=== PATIENT | male | born 1950 | race Caucasian/White ===

== ENCOUNTER 2021-07-06 15:12 | Inpatient (IN) | payer BC, MEDICARE ==
[~2021-07-06] VITALS: Ht 190.5 cm; Wt 65.9 kg
[2021-07-06 15:50] LABS: BASOPHILS % (AUTO) 0.1 % (0-1); EOSINOPHILS # (AUTO) 0.1 X10'3 (0-0.9); EOSINOPHILS % (AUTO) 0.3 % (0-6); HEMATOCRIT 27.8 % (42.0-52.0); HEMOGLOBIN 9.5 g/dl (14.0-17.9); LYMPHOCYTES % (AUTO) 13.3 % (21-51); MEAN CORPUSCULAR HEMOGLOBIN 30.4 PG (27.0-31.0); MEAN CORPUSCULAR HGB CONC 34.2 g/dL (33.0-36.5); MEAN CORPUSCULAR VOLUME 88.7 FL (78-98); MEAN PLATELET VOLUME 7.5 FL (7.4-10.4); MONOCYTES # (AUTO) 1.2 X10'3 (0-0.9); MONOCYTES % (AUTO) 5.2 % (2-12); NEUTROPHILS # (AUTO) 18.4 X10'3 (1.8-7.7); NEUTROPHILS % (AUTO) 81.1 % (42-75); PLATELET COUNT 257 X10'3 (140-440); RED BLOOD COUNT 3.13 X10'6 (4.70-6.10); RED CELL DISTRIBUTION WIDTH 14.9 % (11.5-14.5); WHITE BLOOD COUNT 22.7 X10'3 (4.5-11.0)
[2021-07-06] MEDS ORDERED: pantoprazole 40MG/NS 100ML BAG 100 ML IV SCH (16:00)
[2021-07-06 16:04] LABS: APTT 26 SECONDS (22-32)
[2021-07-06 16:05] LABS: ALANINE AMINOTRANSFERASE 40 U/L (12-78); ALBUMIN 1.3 G/DL (3.4-5.0); ALBUMIN/GLOBULIN RATIO 0.5 (1.1-1.5); ALKALINE PHOSPHATASE 69 IU/L (46-116); ANION GAP 6 (8-16); ASPARTATE AMINO TRANSFERASE 8 U/L (10-37); BILIRUBIN,TOTAL 0.2 MG/DL (0.1-1.0); BLOOD UREA NITROGEN 36 MG/DL (7-18); BUN/CREATININE RATIO 50.7 (5.4-32.0); CALCIUM 7.1 MG/DL (8.5-10.1); CHLORIDE 108 MMOL/L (99-107); CREATININE 0.71 MG/DL (0.60-1.10); GLUCOSE 148 MG/DL (70-104); SODIUM 142 MMOL/L (135-145); TOTAL CARBON DIOXIDE 27.8 MMOL/L (24-32); TOTAL PROTEIN 3.7 G/DL (6.4-8.2); eGFR > 90 ML/MIN
[2021-07-06] MEDS ORDERED: normal saline 1000ml 1,000 ML IV ONE ×2 (16:15→18:10)
[2021-07-06 17:11] LABS: LARGE PLATELETS FEW; NUCLEATED RED BLOOD CELLS 1 /100WBC (0-0); PLATELET ESTIMATE NORMAL; POLYCHROMASIA FEW; TOTAL CELLS COUNTED 100
[2021-07-06] MEDS ORDERED: magnesium 2GM in 50ml NS 50 ML IV PRN (18:35)
[2021-07-06] MEDS ORDERED: magnesium 4gm in 100ml NS 100 ML IV PRN (18:35)
[2021-07-06] MEDS ORDERED: potassium CL 10mEq/100ml bag 100 ML IV PRN (18:35)
[2021-07-06] MEDS ORDERED: mag hydrox/Alum hydrox/simeth 30ml oral suspension PO PRN (18:35)
[2021-07-06] MEDS ORDERED: potassium Cl 20 mEq SR tablet PO PRN (18:35)
[2021-07-06] MEDS ORDERED: HYDROcodone/acetaminophen 5mg/325mg tablet PO PRN (18:35)
[2021-07-06] MEDS ORDERED: morphine 2 MG/ML inj. syringe IV PRN (18:35)
[2021-07-06] MEDS ORDERED: ondansetron/PF 4mg/2ml inj IV PRN (18:35)
[2021-07-06] MEDS ORDERED: dextrose 50%-water 50ml dispensing syringe IV PRN ×2 (18:50)
[2021-07-06] MEDS ORDERED: dextrose ORAL solution 15 GM/59 ML bottle PO PRN ×2 (18:50)
[2021-07-06] MEDS ORDERED: glucagon, human recombinant 1mg kit SUBCUT PRN (18:50)
[2021-07-06] MEDS ORDERED: MESSAGE TO PHARMACY PO ONE (18:50)
[2021-07-06] MEDS ORDERED: PREG150C46 PO (19:29)
[2021-07-06] MEDS ORDERED: OXYC-658 PO (19:29)
[2021-07-06] MEDS ORDERED: PRED20TA (19:29)
[2021-07-06] MEDS ORDERED: OMEP-50 PO (19:29)
[2021-07-06] MEDS ORDERED: APIX5TAB3 PO (19:29)
[2021-07-06] MEDS ORDERED: CELE100C98 PO (19:29)
[2021-07-06] MEDS: docusate sod 100mg capsule PO SCH (19:32)
[2021-07-06] MEDS: K and/or MAG REPLACEMENT MC SCH (20:00)
[2021-07-06] MEDS: insulin glargine (Lantus) pen - multi-dose SQ SCH (20:44)
[2021-07-06 21:10] LABS: HEMOGLOBIN 7.8 g/dl (14.0-17.9); MEAN CORPUSCULAR HEMOGLOBIN 30.7 PG (27.0-31.0); MEAN CORPUSCULAR HGB CONC 34.1 g/dL (33.0-36.5); MEAN CORPUSCULAR VOLUME 90.1 FL (78-98); MEAN PLATELET VOLUME 7.4 FL (7.4-10.4); PLATELET COUNT 240 X10'3 (140-440); RED BLOOD COUNT 2.55 X10'6 (4.70-6.10); RED CELL DISTRIBUTION WIDTH 14.5 % (11.5-14.5)
[2021-07-06] MEDS: pantoprazole 40MG/D5 100ML BAG 100 ML IV SCH (21:16)
[2021-07-06] MEDS: normal saline 1000ml 1,000 ML IV SCH (21:20)
--- NOTE | 2021-07-06 22:32 | NUR ---
NS reassessment undocumented prior to this RN assuming care.
[2021-07-06] MEDS: morphine 2 MG/ML inj. syringe IV PRN (23:07)
[2021-07-07] VITALS (16 sets, daily range): BP systolic 74–114; BP diastolic 48–75
--- NOTE | 2021-07-07 03:45 | NUR ---
ATTEMPTED TO DRAW BLOOD X2 AND WAS UNSUCCESSFUL. PT HAD LARGE BM W/ LARGE AMT OF BLOOD NOTED. WILL REQUEST PHLEBOTOMY ASSISTANCE. WILL CONTINUE TO OBSERVE.
[2021-07-07] MEDS: pantoprazole 40MG/D5 100ML BAG 100 ML IV SCH ×2 (04:01→14:30)
[2021-07-07] MEDS: morphine 2 MG/ML inj. syringe IV PRN ×3 (04:02→23:36)
--- NOTE | 2021-07-07 05:55 | NUR ---
PHLEBOTOMY WAS UNABLE TO DRAW ALSO. INFORMED. NO NEW ORDERS. WILL CONTINUE TO OBSERVE.
--- NOTE | 2021-07-07 06:27 | NUR ---
Patient in room PCU 3011. I have received report from Lb REYNOLDS and had the opportunity to ask questions and assume patient care. Pt. safe and stable at time of change of shift.
[2021-07-07] MEDS: docusate sod 100mg capsule PO SCH ×2 (08:00→21:22)
[2021-07-07] MEDS: K and/or MAG REPLACEMENT MC SCH ×2 (08:00→20:00)
[2021-07-07 08:12] LABS: HEMATOCRIT 23.2 % (42.0-52.0); HEMOGLOBIN 7.9 g/dl (14.0-17.9); MEAN CORPUSCULAR HGB CONC 33.9 g/dL (33.0-36.5); MEAN CORPUSCULAR VOLUME 91.5 FL (78-98); MEAN PLATELET VOLUME 7.6 FL (7.4-10.4); PLATELET COUNT 283 X10'3 (140-440); RED BLOOD COUNT 2.54 X10'6 (4.70-6.10); WHITE BLOOD COUNT 18.2 X10'3 (4.5-11.0)
[2021-07-07] MEDS: normal saline 1000ml 1,000 ML IV SCH ×2 (08:12→15:14)
--- NOTE | 2021-07-07 08:19 | NUR ---
INSULIN REFUSAL Pt. NPO not given insulin, will continue to monitor throughout shift.
[2021-07-07 08:24] LABS: ALANINE AMINOTRANSFERASE 35 U/L (12-78); ALBUMIN 1.4 G/DL (3.4-5.0); ALBUMIN/GLOBULIN RATIO 0.6 (1.1-1.5); ALKALINE PHOSPHATASE 64 IU/L (46-116); ANION GAP 9 (8-16); ASPARTATE AMINO TRANSFERASE 10 U/L (10-37); BILIRUBIN,TOTAL 0.2 MG/DL (0.1-1.0); BLOOD UREA NITROGEN 24 MG/DL (7-18); CALCIUM 7.2 MG/DL (8.5-10.1); CHLORIDE 111 MMOL/L (99-107); GLUCOSE 212 MG/DL (70-104); MAGNESIUM 1.6 MG/DL (1.5-2.4); POTASSIUM 3.9 MMOL/L (3.5-5.1); SODIUM 144 MMOL/L (135-145); TOTAL CARBON DIOXIDE 23.9 MMOL/L (24-32); TOTAL PROTEIN 3.8 G/DL (6.4-8.2); eGFR > 90 ML/MIN
[2021-07-07] MEDS ORDERED: fentaNYL/PF 50MCG/1 ML 2ML syringe ONE (09:16)
[2021-07-07] MEDS ORDERED: MIDAZolam 1 MG/ML 5ML VIAL ONE (09:16)
[2021-07-07] MEDS ORDERED: LIDOcaine Viscous 15ml cup ONE (09:17)
[2021-07-07] MEDS ORDERED: oxyCODONE IR 5mg (immed. release) tablet PO PRN (11:10)
[2021-07-07] MEDS: HYDROcodone/acetaminophen 10/325mg tab PO PRN (11:43)
[2021-07-07] MEDS: pregabalin 75mg capsule PO SCH ×2 (13:13→21:21)
--- NOTE | 2021-07-07 15:17 | NUR ---
Lumbar CT Pt. refused CT stating he's too tired right now; Pt. receiving blood currently; Will continue to monitor. Kathi Click PCU
[2021-07-07] MEDS: insulin Lispro (HumaLOG) vial - multi-dose SQ SCH (15:40)
--- NOTE | 2021-07-07 16:13 | NUR ---
Malnutrition consult: Per malnutrition risk screen pt unsure of wt loss though reports decreased appetite. Per triage note/EMR pt previously in ICU at another facility one week ago with DVT and bilat pulmonary embolism and was discharged 24 hrs CATECHIST. Pt admit for GIB, s/p EGD today which demonstrated a duodenal bulb ulcer 1 cm that is nonbleeding per physician note. No scaled wt hx in EMR. Pt on a full liquid diet documented to have consumed applesauce and yogurt for first meal s/p EGD. Pt with no documented decrease in muscle strength or edema. Pt currently lacks a minimum of two criteria for malnutrition though will continue to follow and monitor qualifying criteria. Addendum: 07/07/21 at [address] Amended: Links added.
[2021-07-07] MEDS: pantoprazole 40MG/NS 100ML BAG 100 ML IV SCH ×2 (16:34→21:22)
--- NOTE | 2021-07-07 17:58 | NUR ---
Blood sugar Blood sugar elevated due to patient just finishing lunch that arrived late; Will pass on to nightshift RN
--- NOTE | 2021-07-07 18:35 | NUR ---
Problems reprioritized. Patient report given Gilberto RN, questions answered & plan of care reviewed with Gilberto REYNOLDS. Pt. safe and stable at time of change of shift.
[2021-07-07 19:21] LABS: HEMATOCRIT 27.7 % (42.0-52.0); HEMOGLOBIN 9.6 g/dl (14.0-17.9); MEAN CORPUSCULAR HEMOGLOBIN 31.1 PG (27.0-31.0); MEAN CORPUSCULAR HGB CONC 34.6 g/dL (33.0-36.5); MEAN PLATELET VOLUME 7.7 FL (7.4-10.4); PLATELET COUNT 289 X10'3 (140-440); RED BLOOD COUNT 3.08 X10'6 (4.70-6.10); RED CELL DISTRIBUTION WIDTH 15.2 % (11.5-14.5); WHITE BLOOD COUNT 18.7 X10'3 (4.5-11.0)
[2021-07-07] MEDS: insulin glargine (Lantus) pen - multi-dose SQ SCH (21:00)
[2021-07-08 02:00] VITALS: BP 108/65
[2021-07-08] MEDS: normal saline 1000ml 1,000 ML IV SCH ×2 (02:41→15:13)
[2021-07-08] MEDS: pantoprazole 40MG/NS 100ML BAG 100 ML IV SCH ×5 (02:41→21:18)
[2021-07-08 06:00] VITALS: BP 119/67
--- NOTE | 2021-07-08 06:26 | NUR ---
Patient in room PCU 3011. I have received report from Gilberto REYNOLDS and had the opportunity to ask questions and assume patient care. Pt. safe and stable at time of change of shift. Will continue to monitor.
[2021-07-08] MEDS: docusate sod 100mg capsule PO SCH ×2 (06:43→20:00)
[2021-07-08] MEDS: pregabalin 75mg capsule PO SCH ×3 (06:59→21:19)
[2021-07-08] MEDS ORDERED: CefTRIAXone/D5W-Rocephin 1gm 50 ML IV ONE (09:35)
[2021-07-08] MEDS: insulin Lispro (HumaLOG) vial - multi-dose SQ SCH ×2 (09:36→15:12)
[2021-07-08 11:00] VITALS: BP 122/69
[2021-07-08 11:15] LABS: HEMATOCRIT 25.9 % (42.0-52.0); HEMOGLOBIN 8.8 g/dl (14.0-17.9); MEAN CORPUSCULAR HEMOGLOBIN 30.5 PG (27.0-31.0); MEAN CORPUSCULAR HGB CONC 33.9 g/dL (33.0-36.5); MEAN CORPUSCULAR VOLUME 90.1 FL (78-98); MEAN PLATELET VOLUME 7.3 FL (7.4-10.4); PLATELET COUNT 261 X10'3 (140-440); RED BLOOD COUNT 2.88 X10'6 (4.70-6.10); RED CELL DISTRIBUTION WIDTH 15.2 % (11.5-14.5); WHITE BLOOD COUNT 13.7 X10'3 (4.5-11.0)
[2021-07-08 11:40] LABS: ALANINE AMINOTRANSFERASE 43 U/L (12-78); ALBUMIN 1.5 G/DL (3.4-5.0); ALBUMIN/GLOBULIN RATIO 0.5 (1.1-1.5); ALKALINE PHOSPHATASE 116 IU/L (46-116); ANION GAP 11 (8-16); ASPARTATE AMINO TRANSFERASE 15 U/L (10-37); BILIRUBIN,TOTAL 0.2 MG/DL (0.1-1.0); BLOOD UREA NITROGEN 10 MG/DL (7-18); BUN/CREATININE RATIO 14.9 (5.4-32.0); CALCIUM 7.5 MG/DL (8.5-10.1); CHLORIDE 104 MMOL/L (99-107); CREATININE 0.67 MG/DL (0.60-1.10); GLUCOSE 233 MG/DL (70-104); MAGNESIUM 1.6 MG/DL (1.5-2.4); POTASSIUM 3.2 MMOL/L (3.5-5.1); SODIUM 138 MMOL/L (135-145); TOTAL CARBON DIOXIDE 22.7 MMOL/L (24-32); TOTAL PROTEIN 4.8 G/DL (6.4-8.2); eGFR > 90 ML/MIN
[2021-07-08] MEDS: potassium Cl 20 mEq SR tablet PO PRN ×2 (11:57→21:19)
[2021-07-08] MEDS: K and/or MAG REPLACEMENT MC SCH ×2 (12:30→20:00)
[2021-07-08 13:28] LABS: HEMATOCRIT 25.1 % (42.0-52.0); HEMOGLOBIN 8.4 g/dl (14.0-17.9); MEAN CORPUSCULAR HEMOGLOBIN 30.5 PG (27.0-31.0); MEAN CORPUSCULAR HGB CONC 33.5 g/dL (33.0-36.5); MEAN CORPUSCULAR VOLUME 90.9 FL (78-98); PLATELET COUNT 252 X10'3 (140-440); RED BLOOD COUNT 2.76 X10'6 (4.70-6.10); RED CELL DISTRIBUTION WIDTH 14.9 % (11.5-14.5); WHITE BLOOD COUNT 13.5 X10'3 (4.5-11.0)
[2021-07-08 15:00] VITALS: BP 149/85
[2021-07-08 18:30] VITALS: BP 117/73
--- NOTE | 2021-07-08 18:56 | NUR ---
Problems reprioritized. Patient report given to Ej RN, questions answered & plan of care reviewed with Reed REYNOLDS. Pt. safe and stable at time of change of shift.
--- NOTE | 2021-07-08 19:03 | NUR ---
Problems reprioritized. Patient report given to Pippa REYNOLDS, questions answered & plan of care reviewed with Pippa REYNOLDS. Pt. safe and stable at time of change of shift.
[2021-07-08 19:33] LABS: CLARITY,URINE CLEAR (Clear); COLOR,URINE YELLOW (Yellow); GLUCOSE, URINE 500 mg/dl (Neg); KETONES,URINE NEGATIVE (Neg); LEUKOCYTE ESTERASE ,URINE NEGATIVE (Neg); NITRITES, URINE NEGATIVE (Neg); OCCULT BLOOD,URINE NEGATIVE (Neg); PROTEIN,URINE NEGATIVE (Neg); UROBILINOGEN,URINE 0.2 E.U/dL (0.2-1.0)
[2021-07-08 19:36] LABS: UA COLLECTION TYPE CLN CATCH MIDSTREAM
[2021-07-08] MEDS: insulin glargine (Lantus) pen - multi-dose SQ SCH (21:24)
[2021-07-08 22:09] LABS: HEMATOCRIT 24.1 % (42.0-52.0); HEMOGLOBIN 8.2 g/dl (14.0-17.9); MEAN CORPUSCULAR HEMOGLOBIN 30.7 PG (27.0-31.0); MEAN CORPUSCULAR HGB CONC 33.9 g/dL (33.0-36.5); MEAN CORPUSCULAR VOLUME 90.6 FL (78-98); MEAN PLATELET VOLUME 7.6 FL (7.4-10.4); PLATELET COUNT 243 X10'3 (140-440); RED BLOOD COUNT 2.67 X10'6 (4.70-6.10); RED CELL DISTRIBUTION WIDTH 15.1 % (11.5-14.5); WHITE BLOOD COUNT 13.5 X10'3 (4.5-11.0)
[2021-07-08] MEDS: acetaminophen 325mg tablet PO PRN (22:11)
[2021-07-08 22:30] VITALS: BP 102/56
[2021-07-09 02:30] VITALS: BP 107/59
[2021-07-09] MEDS: normal saline 1000ml 1,000 ML IV SCH ×3 (06:35→16:35)
--- NOTE | 2021-07-09 06:45 | NUR ---
Patient in room PCU 3011. I have received report from [employer] and had the opportunity to ask questions and assume patient care.
[2021-07-09 07:00] VITALS: BP 132/75
[2021-07-09] MEDS: K and/or MAG REPLACEMENT MC SCH ×2 (08:00→20:00)
[2021-07-09 08:35] LABS: MEAN CORPUSCULAR HEMOGLOBIN 30.4 PG (27.0-31.0); MEAN CORPUSCULAR HGB CONC 33.3 g/dL (33.0-36.5); MEAN CORPUSCULAR VOLUME 91.1 FL (78-98); MEAN PLATELET VOLUME 7.6 FL (7.4-10.4); PLATELET COUNT 249 X10'3 (140-440); RED BLOOD COUNT 2.63 X10'6 (4.70-6.10); RED CELL DISTRIBUTION WIDTH 15.3 % (11.5-14.5); WHITE BLOOD COUNT 11.5 X10'3 (4.5-11.0)
[2021-07-09] MEDS: docusate sod 100mg capsule PO SCH ×2 (08:44→20:22)
[2021-07-09] MEDS: CefTRIAXone/D5W-Rocephin 1gm 50 ML IV SCH (08:44)
[2021-07-09] MEDS: pregabalin 75mg capsule PO SCH ×3 (08:45→20:22)
[2021-07-09 09:03] LABS: ALANINE AMINOTRANSFERASE 32 U/L (12-78); ALBUMIN 1.3 G/DL (3.4-5.0); ALBUMIN/GLOBULIN RATIO 0.5 (1.1-1.5); ALKALINE PHOSPHATASE 102 IU/L (46-116); ANION GAP 11 (8-16); ASPARTATE AMINO TRANSFERASE 11 U/L (10-37); BILIRUBIN,TOTAL 0.2 MG/DL (0.1-1.0); BLOOD UREA NITROGEN 3 MG/DL (7-18); BUN/CREATININE RATIO 5.2 (5.4-32.0); CALCIUM 7.4 MG/DL (8.5-10.1); CHLORIDE 108 MMOL/L (99-107); CREATININE 0.58 MG/DL (0.60-1.10); GLUCOSE 130 MG/DL (70-104); MAGNESIUM 1.7 MG/DL (1.5-2.4); POTASSIUM 3.4 MMOL/L (3.5-5.1); SODIUM 143 MMOL/L (135-145); TOTAL CARBON DIOXIDE 24.3 MMOL/L (24-32); TOTAL PROTEIN 4.1 G/DL (6.4-8.2); eGFR > 90 ML/MIN
[2021-07-09] MEDS: insulin Lispro (HumaLOG) vial - multi-dose SQ SCH ×3 (09:09→20:25)
[2021-07-09] MEDS: pantoprazole 40MG/NS 100ML BAG 100 ML IV SCH ×4 (09:14→16:16)
[2021-07-09 10:55] LABS: HEMOGLOBIN 8.1 g/dl (14.0-17.9); MEAN CORPUSCULAR HEMOGLOBIN 30.5 PG (27.0-31.0); MEAN CORPUSCULAR HGB CONC 33.9 g/dL (33.0-36.5); MEAN CORPUSCULAR VOLUME 90.2 FL (78-98); MEAN PLATELET VOLUME 7.2 FL (7.4-10.4); PLATELET COUNT 221 X10'3 (140-440); RED BLOOD COUNT 2.66 X10'6 (4.70-6.10); RED CELL DISTRIBUTION WIDTH 15.2 % (11.5-14.5); WHITE BLOOD COUNT 11.6 X10'3 (4.5-11.0)
[2021-07-09 11:00] VITALS: BP 135/81
[2021-07-09] MEDS: HYDROcodone/acetaminophen 10/325mg tab PO PRN (14:29)
[2021-07-09 15:00] VITALS: BP 100/55
[2021-07-09] MEDS: potassium Cl 20 mEq SR tablet PO PRN (16:15)
[2021-07-09 18:00] VITALS: BP 97/55
--- NOTE | 2021-07-09 19:13 | NUR ---
Patient in room PCU 3011. I have received report from DIGNA REYNOLDS and had the opportunity to ask questions and assume patient care.
[2021-07-09] MEDS: lactobacillus rhamnosus 10,000 MMU CELLS/CAPSULE PO SCH (20:22)
[2021-07-09 22:00] VITALS: BP 103/69
[2021-07-09] MEDS: insulin glargine (Lantus) pen - multi-dose SQ SCH (22:17)
[2021-07-10 02:00] VITALS: BP 100/59
--- NOTE | 2021-07-10 06:41 | NUR ---
Problems reprioritized. Patient report given, questions answered & plan of care reviewed with DIGNA REYNOLDS.
--- NOTE | 2021-07-10 06:53 | NUR ---
Patient in room PCU 3011. I have received report from Chelsey and had the opportunity to ask questions and assume patient care.
[2021-07-10 06:54] LABS: HEMOGLOBIN 7.9 g/dl (14.0-17.9); MEAN CORPUSCULAR HEMOGLOBIN 31.2 PG (27.0-31.0); MEAN CORPUSCULAR HGB CONC 34.4 g/dL (33.0-36.5); MEAN CORPUSCULAR VOLUME 90.8 FL (78-98); MEAN PLATELET VOLUME 7.6 FL (7.4-10.4); PLATELET COUNT 256 X10'3 (140-440); RED BLOOD COUNT 2.53 X10'6 (4.70-6.10); RED CELL DISTRIBUTION WIDTH 15.6 % (11.5-14.5); WHITE BLOOD COUNT 9.9 X10'3 (4.5-11.0)
[2021-07-10 07:00] VITALS: BP 118/75
[2021-07-10 07:02] LABS: ALANINE AMINOTRANSFERASE 31 U/L (12-78); ALBUMIN 1.4 G/DL (3.4-5.0); ALBUMIN/GLOBULIN RATIO 0.5 (1.1-1.5); ALKALINE PHOSPHATASE 113 IU/L (46-116); ANION GAP 9 (8-16); ASPARTATE AMINO TRANSFERASE 13 U/L (10-37); BILIRUBIN,TOTAL 0.2 MG/DL (0.1-1.0); BLOOD UREA NITROGEN 5 MG/DL (7-18); BUN/CREATININE RATIO 9.4 (5.4-32.0); CALCIUM 7.4 MG/DL (8.5-10.1); CHLORIDE 106 MMOL/L (99-107); CREATININE 0.53 MG/DL (0.60-1.10); GLUCOSE 79 MG/DL (70-104); MAGNESIUM 1.7 MG/DL (1.5-2.4); POTASSIUM 3.2 MMOL/L (3.5-5.1); SODIUM 141 MMOL/L (135-145); TOTAL CARBON DIOXIDE 25.9 MMOL/L (24-32); TOTAL PROTEIN 4.5 G/DL (6.4-8.2); eGFR > 90 ML/MIN
[2021-07-10] MEDS: docusate sod 100mg capsule PO SCH ×3 (08:00→20:10)
[2021-07-10] MEDS: K and/or MAG REPLACEMENT MC SCH ×2 (08:00→20:00)
[2021-07-10] MEDS: lactobacillus rhamnosus 10,000 MMU CELLS/CAPSULE PO SCH ×2 (08:55→20:10)
[2021-07-10] MEDS: pregabalin 75mg capsule PO SCH ×4 (08:55→20:10)
[2021-07-10] MEDS: CefTRIAXone/D5W-Rocephin 1gm 50 ML IV SCH (08:55)
--- NOTE | 2021-07-10 09:00 | NUR ---
Patient's blood sugar-79mg/dl, he ate 60g of carbs and refused insulin this morning. Plan of care continue.
[2021-07-10] MEDS ORDERED: potassium Cl 40MEQ/1/2NS 520ml 520 ML IV PRN (09:10)
[2021-07-10] MEDS ORDERED: potassium Cl 20 mEq SR tablet PO PRN (09:10)
[2021-07-10] MEDS: morphine 2 MG/ML inj. syringe IV PRN ×2 (09:15→23:49)
[2021-07-10] MEDS: potassium Cl 20 mEq SR tablet PO PRN ×2 (09:43→13:44)
[2021-07-10 11:00] VITALS: BP 102/66
[2021-07-10] MEDS: insulin Lispro (HumaLOG) vial - multi-dose SQ SCH (13:51)
[2021-07-10 15:00] VITALS: BP 126/73
[2021-07-10] MEDS: acetaminophen 325mg tablet PO PRN (16:03)
[2021-07-10 18:00] VITALS: BP 100/58
--- NOTE | 2021-07-10 18:39 | NUR ---
Patient had a qnem136.2 at 1500. Tylenol prn administered at 1603. Temp rechecked at 1705 reads-98.8. 1700 blood sugar check-49mg/dl. Gllucose po administered at 1732 per prn order. Blood sugar rechecked at 1747-118mg/dl. Receiving nurse made aware to f/u.
--- NOTE | 2021-07-10 18:40 | NUR ---
Problems reprioritized. Patient report given, questions answered & plan of care reviewed with Teresa Campo
--- NOTE | 2021-07-10 19:19 | NUR ---
Patient in room PCU 3011. I have received report from Osiris REYNOLDS and had the opportunity to ask questions and assume patient care.
--- NOTE | 2021-07-10 19:20 | NUR ---
Pt blood sugar dropped to 49 @ 1700. Will not give humalog for dinner, will recheck at 2100. The low blood sugar was treated on day shift.
[2021-07-10] MEDS: insulin glargine (Lantus) pen - multi-dose SQ SCH (21:52)
[2021-07-10 22:00] VITALS: BP 105/67
[2021-07-11 02:00] VITALS: BP 127/70
--- NOTE | 2021-07-11 06:14 | NUR ---
Problems reprioritized. Patient report given, questions answered & plan of care reviewed with Osiris REYNOLDS.
--- NOTE | 2021-07-11 06:14 | NUR ---
Patient in room PCU 3011. I have received report from Teresa Richards and had the opportunity to ask questions and assume patient care.
[2021-07-11 07:00] VITALS: BP 148/88
[2021-07-11 07:19] LABS: BASOPHILS % (AUTO) 0.4 % (0-1); EOSINOPHILS # (AUTO) 0.1 X10'3 (0-0.9); EOSINOPHILS % (AUTO) 0.9 % (0-6); HEMATOCRIT 23.6 % (42.0-52.0); HEMOGLOBIN 8.2 g/dl (14.0-17.9); LYMPHOCYTES # (AUTO) 0.9 X10'3 (1.1-4.8); LYMPHOCYTES % (AUTO) 12.2 % (21-51); MEAN CORPUSCULAR HEMOGLOBIN 31.1 PG (27.0-31.0); MEAN CORPUSCULAR HGB CONC 34.6 g/dL (33.0-36.5); MEAN PLATELET VOLUME 7.7 FL (7.4-10.4); MONOCYTES # (AUTO) 0.5 X10'3 (0-0.9); NEUTROPHILS # (AUTO) 5.9 X10'3 (1.8-7.7); NEUTROPHILS % (AUTO) 79.5 % (42-75); PLATELET COUNT 287 X10'3 (140-440); RED BLOOD COUNT 2.63 X10'6 (4.70-6.10); RED CELL DISTRIBUTION WIDTH 15.8 % (11.5-14.5); WHITE BLOOD COUNT 7.5 X10'3 (4.5-11.0)
[2021-07-11 07:23] LABS: ALANINE AMINOTRANSFERASE 28 U/L (12-78); ALBUMIN 1.4 G/DL (3.4-5.0); ALBUMIN/GLOBULIN RATIO 0.4 (1.1-1.5); ALKALINE PHOSPHATASE 103 IU/L (46-116); ANION GAP 6 (8-16); ASPARTATE AMINO TRANSFERASE 8 U/L (10-37); BILIRUBIN,TOTAL 0.2 MG/DL (0.1-1.0); BLOOD UREA NITROGEN 4 MG/DL (7-18); BUN/CREATININE RATIO 7.1 (5.4-32.0); CALCIUM 7.7 MG/DL (8.5-10.1); CHLORIDE 107 MMOL/L (99-107); CREATININE 0.56 MG/DL (0.60-1.10); GLUCOSE 84 MG/DL (70-104); MAGNESIUM 1.7 MG/DL (1.5-2.4); POTASSIUM 3.1 MMOL/L (3.5-5.1); SODIUM 140 MMOL/L (135-145); TOTAL CARBON DIOXIDE 26.7 MMOL/L (24-32); TOTAL PROTEIN 4.7 G/DL (6.4-8.2); eGFR > 90 ML/MIN
[2021-07-11] MEDS: CefTRIAXone/D5W-Rocephin 1gm 50 ML IV SCH (07:39)
[2021-07-11] MEDS: potassium Cl 20 mEq SR tablet PO PRN ×2 (07:43→12:42)
[2021-07-11] MEDS: pregabalin 75mg capsule PO SCH ×3 (07:43→20:30)
[2021-07-11] MEDS: lactobacillus rhamnosus 10,000 MMU CELLS/CAPSULE PO SCH ×2 (07:43→20:29)
[2021-07-11] MEDS: K and/or MAG REPLACEMENT MC SCH ×2 (07:47→20:00)
[2021-07-11] MEDS: docusate sod 100mg capsule PO SCH ×2 (07:47→20:30)
--- NOTE | 2021-07-11 08:10 | NUR ---
Initial: Pt admit for GIB, s/p EGD which demonstrated a duodenal bulb ulcer 1 cm that is nonbleeding per physician note, pt now also w/ sepsis. Pt noted to be recently hospitalized w/ DVT and PE per MD note. Pt has been on [facility] diet since 07/08 w/ mostly 100% intake of meals. Noted A1C 6 and pt has periods of hypoglycemia, recommend liberalizing to Regular diet if MD agreeable. [facility] 07/10. Will continue to monitor. Recs: 1. Liberalize to Regular diet if MD agreeable 2. Double protein BIDBD 3. Bowel care per rx 4. Weekly wts Addendum: 07/11/21 at [address] Amended: Links added.
--- NOTE | 2021-07-11 10:59 | NUR ---
Patient's 0700 blood sugar-86mg/dl. He ate 60g of carbs and refused insulin. Dr. Dia made aware and states, "that's ok". Plan of care will continue.
[2021-07-11 11:00] VITALS: BP 108/63
--- NOTE | 2021-07-11 12:47 | NUR ---
Patient ate 60g of carbs for lunch, blood sugar at 1200-147mg/dl. He refused lunch time insulin. Plan of care will continue.
[2021-07-11] MEDS: morphine 2 MG/ML inj. syringe IV PRN ×2 (14:07→20:31)
[2021-07-11 15:00] VITALS: BP 105/57
[2021-07-11 18:00] VITALS: BP 119/66
--- NOTE | 2021-07-11 18:41 | NUR ---
Patient in room PCU 3011. I have received report from Osiris REYNOLDS and had the opportunity to ask questions and assume patient care.
--- NOTE | 2021-07-11 19:18 | NUR ---
Problems reprioritized. Patient report given, questions answered & plan of care reviewed with Teresa Campo
[2021-07-11] MEDS: insulin Lispro (HumaLOG) vial - multi-dose SQ SCH (19:19)
[2021-07-11] MEDS: insulin glargine (Lantus) pen - multi-dose SQ SCH (21:15)
[2021-07-11 22:00] VITALS: BP 108/67
--- NOTE | 2021-07-11 22:21 | NUR ---
Placed an opti and barrier cream on open sore on sacrum area.
[2021-07-12 03:00] VITALS: BP 153/86
--- NOTE | 2021-07-12 04:30 | NUR ---
Around 0415, pt had a hr of 160s for a little, television engineering teacher notified me. The HR is back down to pt norm, will continue to monitor.
--- NOTE | 2021-07-12 06:18 | NUR ---
Problems reprioritized. Patient report given, questions answered & plan of care reviewed with Osiris REYNOLDS.
[2021-07-12 06:55] LABS: ALANINE AMINOTRANSFERASE 27 U/L (12-78); ALBUMIN 1.4 G/DL (3.4-5.0); ALBUMIN/GLOBULIN RATIO 0.4 (1.1-1.5); ALKALINE PHOSPHATASE 123 IU/L (46-116); ANION GAP 9 (8-16); ASPARTATE AMINO TRANSFERASE 12 U/L (10-37); BILIRUBIN,TOTAL 0.2 MG/DL (0.1-1.0); BLOOD UREA NITROGEN 6 MG/DL (7-18); BUN/CREATININE RATIO 11.3 (5.4-32.0); CALCIUM 7.9 MG/DL (8.5-10.1); CHLORIDE 105 MMOL/L (99-107); CREATININE 0.53 MG/DL (0.60-1.10); GLUCOSE 99 MG/DL (70-104); POTASSIUM 3.4 MMOL/L (3.5-5.1); SODIUM 139 MMOL/L (135-145); TOTAL CARBON DIOXIDE 25.4 MMOL/L (24-32); TOTAL PROTEIN 5.1 G/DL (6.4-8.2); eGFR > 90 ML/MIN
[2021-07-12 06:58] LABS: BASOPHILS % (AUTO) 0.6 % (0-1); EOSINOPHILS # (AUTO) 0.1 X10'3 (0-0.9); EOSINOPHILS % (AUTO) 0.9 % (0-6); HEMATOCRIT 23.7 % (42.0-52.0); LYMPHOCYTES # (AUTO) 0.8 X10'3 (1.1-4.8); LYMPHOCYTES % (AUTO) 11.2 % (21-51); MEAN CORPUSCULAR HEMOGLOBIN 30.8 PG (27.0-31.0); MEAN CORPUSCULAR HGB CONC 33.8 g/dL (33.0-36.5); MEAN CORPUSCULAR VOLUME 91.2 FL (78-98); MONOCYTES # (AUTO) 0.6 X10'3 (0-0.9); MONOCYTES % (AUTO) 8.9 % (2-12); NEUTROPHILS # (AUTO) 5.5 X10'3 (1.8-7.7); NEUTROPHILS % (AUTO) 78.4 % (42-75); PLATELET COUNT 327 X10'3 (140-440); RED CELL DISTRIBUTION WIDTH 15.7 % (11.5-14.5)
[2021-07-12 07:00] VITALS: BP 124/78
--- NOTE | 2021-07-12 07:00 | NUR ---
Patient in room PCU 3011. I have received report from Teresa Richards and had the opportunity to ask questions and assume patient care.
[2021-07-12] MEDS: docusate sod 100mg capsule PO SCH ×2 (08:00→20:00)
[2021-07-12] MEDS: K and/or MAG REPLACEMENT MC SCH ×2 (08:00→20:00)
[2021-07-12] MEDS: CefTRIAXone/D5W-Rocephin 1gm 50 ML IV SCH (08:18)
[2021-07-12] MEDS: pregabalin 75mg capsule PO SCH ×3 (08:19→20:16)
[2021-07-12] MEDS: potassium Cl 20 mEq SR tablet PO PRN ×3 (08:19→20:15)
[2021-07-12] MEDS: lactobacillus rhamnosus 10,000 MMU CELLS/CAPSULE PO SCH ×2 (08:19→20:16)
[2021-07-12] MEDS: HYDROcodone/acetaminophen 10/325mg tab PO PRN ×2 (08:20→20:15)
[2021-07-12 11:00] VITALS: BP 94/57
[2021-07-12] MEDS: insulin Lispro (HumaLOG) vial - multi-dose SQ SCH ×2 (13:12→19:23)
[2021-07-12 15:00] VITALS: BP 116/65
--- NOTE | 2021-07-12 18:58 | NUR ---
Patient refused insulin this morning. Blood sugar-96mg/dl and ate 60g of carbs. Dr. Dia made aware.
[2021-07-12 19:00] VITALS: BP 137/75
--- NOTE | 2021-07-12 19:37 | NUR ---
Problems reprioritized. Patient report given, questions answered & plan of care reviewed with Pat.
[2021-07-12] MEDS: insulin glargine (Lantus) pen - multi-dose SQ SCH (22:15)
[2021-07-12 23:00] VITALS: BP 109/51
[2021-07-13 03:00] VITALS: BP 103/62
--- NOTE | 2021-07-13 06:47 | NUR ---
Patient in room PCU 3011. I have received report from Bryanna and had the opportunity to ask questions and assume patient care.
[2021-07-13 07:00] VITALS: BP 103/63
[2021-07-13 07:01] LABS: BASOPHILS # (AUTO) 0.1 X10'3 (0-0.2); BASOPHILS % (AUTO) 1.1 % (0-1); EOSINOPHILS # (AUTO) 0.1 X10'3 (0-0.9); EOSINOPHILS % (AUTO) 1.1 % (0-6); HEMATOCRIT 24.3 % (42.0-52.0); HEMOGLOBIN 8.2 g/dl (14.0-17.9); LYMPHOCYTES # (AUTO) 1.1 X10'3 (1.1-4.8); LYMPHOCYTES % (AUTO) 14.3 % (21-51); MEAN CORPUSCULAR HEMOGLOBIN 30.7 PG (27.0-31.0); MEAN CORPUSCULAR HGB CONC 33.8 g/dL (33.0-36.5); MEAN PLATELET VOLUME 7.2 FL (7.4-10.4); MONOCYTES # (AUTO) 0.7 X10'3 (0-0.9); NEUTROPHILS # (AUTO) 5.8 X10'3 (1.8-7.7); NEUTROPHILS % (AUTO) 74.5 % (42-75); PLATELET COUNT 390 X10'3 (140-440); RED BLOOD COUNT 2.67 X10'6 (4.70-6.10); RED CELL DISTRIBUTION WIDTH 15.9 % (11.5-14.5); WHITE BLOOD COUNT 7.8 X10'3 (4.5-11.0)
[2021-07-13 07:37] LABS: ALANINE AMINOTRANSFERASE 29 U/L (12-78); ALBUMIN 1.6 G/DL (3.4-5.0); ALBUMIN/GLOBULIN RATIO 0.4 (1.1-1.5); ALKALINE PHOSPHATASE 132 IU/L (46-116); ANION GAP 8 (8-16); ASPARTATE AMINO TRANSFERASE 12 U/L (10-37); BILIRUBIN,TOTAL 0.2 MG/DL (0.1-1.0); BLOOD UREA NITROGEN 6 MG/DL (7-18); BUN/CREATININE RATIO 10.9 (5.4-32.0); CALCIUM 8.1 MG/DL (8.5-10.1); CHLORIDE 105 MMOL/L (99-107); CREATININE 0.55 MG/DL (0.60-1.10); GLUCOSE 123 MG/DL (70-104); POTASSIUM 3.6 MMOL/L (3.5-5.1); SODIUM 140 MMOL/L (135-145); TOTAL CARBON DIOXIDE 27.5 MMOL/L (24-32); TOTAL PROTEIN 5.6 G/DL (6.4-8.2); eGFR > 90 ML/MIN
[2021-07-13] MEDS: docusate sod 100mg capsule PO SCH (08:00)
[2021-07-13] MEDS: K and/or MAG REPLACEMENT MC SCH (08:00)
[2021-07-13] MEDS: CefTRIAXone/D5W-Rocephin 1gm 50 ML IV SCH (09:28)
[2021-07-13] MEDS: pregabalin 75mg capsule PO SCH ×2 (09:29→12:40)
[2021-07-13] MEDS: lactobacillus rhamnosus 10,000 MMU CELLS/CAPSULE PO SCH (09:29)
[2021-07-13] MEDS: insulin Lispro (HumaLOG) vial - multi-dose SQ SCH ×2 (09:41→12:47)
[2021-07-13] MEDS ORDERED: HYDR-3972 PO (10:53)
[2021-07-13 11:00] VITALS: BP 106/65
[2021-07-13] MEDS: HYDROcodone/acetaminophen 10/325mg tab PO PRN (12:41)
--- NOTE | 2021-07-13 15:16 | NUR ---
Patient has been d/c to go home with instructions/directions printed and verbally given to patient. He verbalizes understanding of all instructions/directions given, all patient's questions/concerns answered. IV line and color television console monitor removed. Patient was medicated for pain prior to d/c. He was assisted with dressing up and transferred to the wheel chair. He was transported to the [facility] by two neon tube pumper with no s/s of pain or distress noted.
== END 2021-07-13 14:26 | disposition home or self-care (01) | DRG 871 ==
LOC: ER 15:13 → ED HOLD 18:42 → PCU 3S 23:33
PROVIDERS: ADMIT Family Medicine; ATTEND Family Medicine
PROC: 0DB68ZX Excision of Stomach, Via Natural or Artificial Opening Endoscopic, Diagnostic (ICD-10-PCS; principal; 2021-07-07)
PROC: 30233N1 Transfusion of Nonautologous Red Blood Cells into Peripheral Vein, Percutaneous Approach (ICD-10-PCS; 2021-07-07)
DX: A41.9 Sepsis, unspecified organism (principal); I26.99 Other pulmonary embolism without acute cor pulmonale; K26.4 Chronic or unspecified duodenal ulcer with hemorrhage; D62 Acute posthemorrhagic anemia; I82.402 Acute embolism and thrombosis of unspecified deep veins of left lower extremity; I95.9 Hypotension, unspecified; R26.2 Difficulty in walking, not elsewhere classified; E11.42 Type 2 diabetes mellitus with diabetic polyneuropathy; Z79.01 Long term (current) use of anticoagulants; Z80.1 Family history of malignant neoplasm of trachea, bronchus and lung; Z82.3 Family history of stroke; Z86.711 Personal history of pulmonary embolism; Z87.891 Personal history of nicotine dependence; Z79.84 Long term (current) use of oral hypoglycemic drugs; Z79.899 Other long term (current) drug therapy
CPT/HCPCS: 36415; 36430; 43239; 71045; 72070; 72100; 74018; 80053; 81003; 82948; 83036; 83605; 83735; 84145; 85007; 85025; 85027; 85610; 85730; 86885; 86900; 86901; 86920; 87040; 87081; 93005; 96365; 97110; 97116; 97162; 97530; 97760; 99152; 99285; C9113; G0378; J0696; J1815; J2250; J2270; J3010; J7030; J7040; P9016